=== PATIENT | male | born 1955 | race Caucasian/White ===

== ENCOUNTER 2018-11-01 07:29 | Day surgery (SDC) | payer MEDICARE ==
[2018-11-01 08:14] VITALS: BMI 25.9
[2018-11-01] MEDS ORDERED: Propofol 10 mg/ml Inj (20 ML) ONE ×2 (10:06→10:28)
[2018-11-01] MEDS ORDERED: Lidocaine Hydrochloride 5 ML INJ ONE (10:08)
[2018-11-01 14:58] VITALS: TEMP 98
[2018-11-01 14:59] VITALS: O2SAT 99
[2018-11-01 15:07] VITALS: BP 140/80; PULSE 60; RESP 18
== END 2018-11-01 12:00 | disposition home or self-care (01) ==
LOC: C.ENDO 07:29
PROVIDERS: ATTEND Internal Medicine Gastroenterology
DX: Z12.11 Encounter for screening for malignant neoplasm of colon (principal); D12.7 Benign neoplasm of rectosigmoid junction; D12.3 Benign neoplasm of transverse colon; K57.30 Diverticulosis of large intestine without perforation or abscess without bleeding; K64.1 Second degree hemorrhoids
CPT/HCPCS: 45380; 45385; 88305; J2704